=== PATIENT | female | born 1955 | race Caucasian/White ===

== ENCOUNTER 2020-12-29 14:31 | Emergency (ER) | payer BC, MEDICARE ==
[~2020-12-29] VITALS: Ht 167.6 cm; Wt 68.0 kg
--- NOTE | 2020-12-29 14:40 | NUR ---
RONNIE STEWART "From a Motel Friend called - was smoking Heroin - Stopped Breathing. Gave Narcan en route. [id number]" Patient a/ox4, breathing even and unlabored, no sob noted, ambulatory withs teady gait. No complaints.
[2020-12-29] MEDS ORDERED: ONDANSETRON 4 MG TAB.RAPDIS ONE (14:52)
[2020-12-29] MEDS ORDERED: ONDANSETRON HCL 4 MG/5 ML SOLUTION PO ONE (15:00)
[2020-12-29] MEDS ORDERED: NALO4SPR NS (15:47)
--- NOTE | 2020-12-29 15:57 | NUR ---
Patient given written and verbal discharge instructions. Patient verbalizes understanding of instructions. Patient is ambulatory with steady gait. Refuses offer of care home placement. Patient given list of available shelters in surrounding area.
[2020-12-29 15:58] VITALS: BP 143/79
== END 2020-12-29 15:59 | disposition home or self-care (01) ==
LOC: ER 14:36
DX: T40.1X1A Poisoning by heroin, accidental (unintentional), initial encounter (principal); Y92.89 Other specified places as the place of occurrence of the external cause
CPT/HCPCS: 99283; Q0162

== ENCOUNTER 2023-04-20 21:54 | Emergency (ER) | payer MEDICARE ==
[~2023-04-20] VITALS: Ht 172.7 cm; Wt 63.5 kg
[~2023-04-20 21:54] MED LIST: NALO4SPR NS
[2023-04-20 22:46] VITALS: BP 135/79; TEMP 98; O2SAT 98
[2023-04-20 22:52] LABS: APPEARANCE,URINE CLEAR (CLEAR); BILIRUBIN,URINE 2+ (NEGATIVE); BLOOD, URINE NEGATIVE Ery/uL (NEGATIVE); COLOR,URINE DARK YELLOW (YELLOW); KETONES,URINE TRACE mg/dL (NEGATIVE); LEUKOCYTE ESTERASE ,URINE TRACE (NEGATIVE); NITRITE, URINE NEGATIVE (NEGATIVE); PH,URINE 5.5 (5.0-8.0); PROTEIN,URINE 1+ mg/dl (NEGATIVE); UGLUCOSE NEGATIVE (NEGATIVE)
[2023-04-20 22:53] LABS: ADD URINE CULTURE NO; BACTERIA,URINE Rare /HPF (None Seen); RBC,URINE 0-2 /HPF (0-2); SQUAMOUS EPITHELIAL CELL,UR Few /HPF (None Seen)
[2023-04-20 23:01] LABS: BARBITURATE, URINE NEGATIVE (NEGATIVE); BENZODIAZEPINE, URINE NEGATIVE (NEGATIVE); CANNABINOID, URINE NEGATIVE (NEGATIVE); COCCAINE, URINE NEGATIVE (NEGATIVE); PHENCYCLIDINE SCREEN,URINE NEGATIVE (NEGATIVE)
[2023-04-20 23:03] LABS: AMPHETAMINE, URINE POSITIVE (NEGATIVE); OPIATE, URINE POSITIVE (NEGATIVE)
== END 2023-04-20 22:30 | disposition home or self-care (01) ==
LOC: ER 21:56
DX: S80.211A Abrasion, right knee, initial encounter (principal); I10 Essential (primary) hypertension; X58.XXXA Exposure to other specified factors, initial encounter; Y93.89 Activity, other specified; Y92.89 Other specified places as the place of occurrence of the external cause; Y99.8 Other external cause status
CPT/HCPCS: 81001

== ENCOUNTER 2025-07-19 12:46 | Inpatient (IN) | payer MEDICARE ==
[~2025-07-19] VITALS: Ht 172.7 cm; Wt 55.8 kg
[2025-07-19 13:04] VITALS: O2SAT 92
--- NOTE | 2025-07-19 13:09 | NUR ---
code sepsis activated
--- NOTE | 2025-07-19 13:30 | NUR ---
MRSA SWAB COLLECTED AND SENT TO LAB
--- NOTE | 2025-07-19 13:32 | NUR ---
urine sent to lab
--- NOTE | 2025-07-19 13:32 | NUR ---
clive sent to lab
[2025-07-19] MEDS ORDERED: ACETAMINOPHEN 650 MG/SUPP.RECT RC ONE (13:33)
[2025-07-19] MEDS: IV NS 0.9% 1,000 ML BAG IV ONE (13:36)
[2025-07-19] MEDS: CEFEPIME 1 GM in IV D5W 50 ML IV ONE (13:37)
[2025-07-19] MEDS: ACETAMINOPHEN 650 MG/SUPP.RECT RC ONE (13:37)
[2025-07-19 13:43] LABS: PLATELET COUNT (AUTO) 266 K/uL (150-450); RED BLOOD CELL COUNT(AUTO) 4.16 MIL/uL (4.0-5.2); RED CELL DISTRIBUTION WIDTH 14.7 % (11.5-15.0); WHITE BLOOD COUNT (AUTO) 16.9 K/uL (4.3-11.0)
[2025-07-19 13:49] LABS: APPEARANCE,URINE CLEAR (CLEAR); BLOOD, URINE 2+ Ery/uL (NEGATIVE); LEUKOCYTE ESTERASE ,URINE NEGATIVE (NEGATIVE); NITRITE, URINE NEGATIVE (NEGATIVE); UGLUCOSE NEGATIVE (NEGATIVE)
[2025-07-19 13:51] LABS: CALCIUM, SERUM 9.3 mg/dL (8.5-10.1); CREATININE 1.4 mg/dL (0.6-1.3); SODIUM SERUM 139 mmol/L (136-145); UREA NITROGEN, BLOOD 41 mg/dL (7-18)
[2025-07-19] MEDS: VANCOMYCIN 1 GM in IV D5W 250 ML IV ONE (13:51)
[2025-07-19 13:52] LABS: SERUM AMMONIA 18 umol/L (11-32)
[2025-07-19 13:59] LABS: LACTIC ACID 2.0 mmol/L (0.4-2.0)
[2025-07-19 14:02] LABS: ADD URINE CULTURE NO; SQUAMOUS EPITHELIAL CELL,UR 0-2 /HPF (None Seen)
[2025-07-19 14:03] LABS: HYALINE CASTS, URINE Rare /LPF (None Seen)
--- NOTE | 2025-07-19 14:04 | NUR ---
MED RECON NOTES Patient is a poor historian and not able to say what medications she currently takes.
[2025-07-19 14:05] LABS: BARBITURATE, URINE NEGATIVE (NEGATIVE); BENZODIAZEPINE, URINE NEGATIVE (NEGATIVE); CANNABINOID, URINE NEGATIVE (NEGATIVE); COCCAINE, URINE NEGATIVE (NEGATIVE); OPIATE, URINE NEGATIVE (NEGATIVE)
[2025-07-19 14:05] LABS: ASPARTATE AMINOTRANSFERASE 39 U/L (15-37); TOTAL PROTEIN, SERUM 8.5 g/dL (6.4-8.2)
[2025-07-19 14:06] LABS: INR 0.99 (0.91-1.10)
[2025-07-19 14:07] LABS: AMPHETAMINE, URINE POSITIVE (NEGATIVE)
[2025-07-19 14:08] LABS: ALCOHOL, BLOOD < 3 mg/dL (0-10)
--- NOTE | 2025-07-19 14:20 | NUR ---
pt wheeled to radio via [facility] by [facility] in stable condition
[2025-07-19] MEDS ORDERED: LORAZEPAM INJ 2 MG/ML VIAL ONE (14:21)
--- NOTE | 2025-07-19 14:26 | NUR ---
BED REQUESTED FROM HOUSE SUPE
[2025-07-19] MEDS ORDERED: IOHEXOL-300 100 ML VIAL IV ONE (14:30)
[2025-07-19] MEDS ORDERED: IV NS 0.9% 250 ML IV ONE (14:30)
--- NOTE | 2025-07-19 14:53 | NUR ---
pt back from radio via [facility] in stable condition
[2025-07-19] MEDS: LORAZEPAM INJ 2 MG/ML VIAL IV ONE (14:56)
--- NOTE | 2025-07-19 15:03 | NUR ---
309-2 ER ADMITTING AWARE
--- NOTE | 2025-07-19 15:15 | NUR ---
report given to flaquito aguilar for jeri
[2025-07-19] MEDS: PERMETHRIN 5% CRM 60 GM TUBE TP ONE (15:30)
--- NOTE | 2025-07-19 15:35 | NUR ---
PT WAS REFERRED TO MD FOR +LICE, WAITING FOR ORDERS
[2025-07-19] MEDS ORDERED: ASPIRIN 325 MG TABLET PO ONE ×2 (16:00)
[2025-07-19] MEDS ORDERED: DOSING PER PHARMACY-CEFEPIME IVPB XX PRN ×2 (16:30→17:15)
[2025-07-19] MEDS ORDERED: hydrALAZINE HCL IV 20 MG VIAL IV PRN (16:30)
[2025-07-19] MEDS ORDERED: ONDANSETRON HCL/PF 4 MG/2 ML VIAL IVP PRN (16:30)
[2025-07-19] MEDS ORDERED: MORPHINE SULFATE INJ 2 MG/ML DISP.SYRIN IV PRN (16:30)
[2025-07-19] MEDS ORDERED: DOSING PER PHARMACY-VANCOMYCIN IV XX PRN ×2 (16:30→17:15)
--- NOTE | 2025-07-19 16:44 | NUR ---
PT MEDICATED, WASHED AND CLEANED ORDERED.
--- NOTE | 2025-07-19 16:45 | NUR ---
Attempted to scan patient (echo) in ER; exam deferred due to patient agitation.
--- NOTE | 2025-07-19 16:47 | NUR ---
COVID SWAB SENT TO LAB
--- NOTE | 2025-07-19 16:49 | NUR ---
INF SWAB SENT TO LAB
--- NOTE | 2025-07-19 16:51 | NUR ---
PT WHEELED TO FLOOR VIA GURNEY BY EMT, IN STABLE CONDITION
--- NOTE | 2025-07-19 17:30 | NUR ---
RN MS ADMISSION NOTE : RECEIVED PT IN BED SLEEP IN [facility] FROM ER, ACCOMPANIED WITH 1 ER STAFF. PT ON ROOM AIR, BREATHING EVEN AND UNLABORED. NO INDICATION OF ACUTE RESPIRATORY DISTRESS NOTED. NO INDICATION OF PAIN NOTED . PT IS ON CONTACT ISOLATION DUE TO LICE. HAIR TRIMMED WITH ELECTRICAL SHAVER. ER APPLIED ELIMITE ON HEAD AND HAIR SINCE PT BECAME AGITATED THEY WASHED OUT HAIR ACCORDING TO NURSE. PT HAS RASH ON BACK SINCE PT BECAME AGITATED AND MOVED UNABLE TO TAKE PICTURES . PT HAS MARTINEZ DUE TO DECOMPRESS BLADDER WITH 900 URINE OUTPUT. IV SITE IS ON RAC22 G RUNNING VANCO IN 100 ML/HR AND 0.9%NS. IV SITE IS PATENT AND FLUSH WELL. PT IS ON AGITATED AND UNCOOPERATIVE STAE. ALL FALL AND SAFETY PRECAUTION IN PLACE.
[2025-07-19] MEDS: IV NS 0.9% 1,000 ML IV SCH (17:49)
[2025-07-19] MEDS: VANCOMYCIN 500 MG in IV D5W 100ml IV ONE (18:24)
--- NOTE | 2025-07-19 20:00 | NUR ---
OPENING NOTES. RECEIVED PT IN BED ..AWAKE,ALERT AND ORIENTEDX1,CONFUSED..VSS,NO SOB,DENIES PAIN.IVF INFUSING,TRELL WELL.SKIN WARM,DRY W/ MULTIPLE SCABS AND RASHES..PLAN OF CARE ONGOING..BED ALARM ON..CALL LIGHT IN REACH..
[2025-07-19] MEDS: HEPARIN SODIUM, PORCINE 5000 UNITS/1 ML VIAL SQ SCH (21:21)
--- NOTE | 2025-07-19 22:10 | NUR ---
Second attempt for echo: scan not performed as patient remained agitated.
[2025-07-20] MEDS: CEFEPIME 2 GM in IV D5W 100 ML IV SCH (01:54)
--- NOTE | 2025-07-20 07:00 | NUR ---
CLOSING NOTES PT'S CARE ENDORSED TO AM NURSE.PT REMAINS STABLE..ALL NEEDS PROVIDED..ALL DUE MEDS GIVEN,TRELL WELL..
--- NOTE | 2025-07-20 07:04 | NUR ---
MS RN OPENING NOTES RECEIVED PATIENT IN BED, ASLEEP BUT AWAKENS TO VERBAL AND TACTILE STIMULI. A/O 1-TO NAME ONLY. NO SIGNS OF CARDIAC DISTRESS NOTED. ON ROOM AIR, TOLERATING WELL. NO SOB, BREATHING EVEN AND UNLABORED. WITH IV ACCESS ON RIGHT ANTECUBITAL #22G-INFUSING WELL WITH NORMAL SALINE AT 75CC/HOUR-INTACT AND PATENT. PATIENT IS UNDER CONTACT ISOLATION DUE TO LICE INFESTATION. MARTINEZ CATHETER IN PLACED DRAINING YELLOW CLEAR URINE VIA GRAVITY. NO FACIAL GRIMACING/DISCOMFORT NOTED AT THIS TIME. SAFETY MEASURES IN PLACED. BED IN LOW AND LOCKED POSITION. CALL LIGHT AND TABLE WITHIN EASY REACH. HOB ELEVATED. SIDE RAILS UP X4. WILL CONTINUE WITH PLAN OF CARE.
[2025-07-20 08:00] VITALS: BP 149/61; TEMP 97.5; O2SAT 97
--- NOTE | 2025-07-20 11:34 | NUR ---
Social Work Note: Social work consultation requested for homelessness. Patient is a 70 year old female who was found on the streets. Patient is unable to answer any questions at this time and has a disorganized thought process. support worker was unable to complete consultation. support worker notified case management of this update.
[2025-07-20] MEDS: IV NS 0.9% 1,000 ML IV PRN (15:03)
[2025-07-20 16:00] VITALS: BP 158/91; TEMP 97.9; O2SAT 98
--- NOTE | 2025-07-20 16:20 | NUR ---
RN NOTES APPLICATION TECHNICIAN REPORTED THAT PATIENT HAS BEEN REFUSING BLOOD DRAW. DEB WOOTEN AND THIS EXCEPTIONAL NEEDS TEACHER WENT TO BEDSIDE TO ASSIST; MULTIPLE ATTEMPTS AVOIDED PER PROTOCOL DUE TO PATIENT BEING HARDSTICK. WILL REATTEMPT LATER.
[2025-07-20] MEDS: VANCOMYCIN 1 GM in IV D5W 250ml IV SCH (18:00)
--- NOTE | 2025-07-20 18:37 | NUR ---
RN NOTES HELD SCHEDULED DOSE OF VANCOMYCIN IV DUE TO INDEPENDENT TRADER UNABLE TO DRAW BLOOD FOR VANCOMYCIN TROUGH LEVEL. MD GALAVIZ AND PHARMACY STAFF KAITLIN ABOUT HOLDING THE MEDICATION.
--- NOTE | 2025-07-20 18:42 | NUR ---
MS RN CLOSING NOTES PATIENT IN BED, ASLEEP BUT AWAKENS TO VERBAL AND TACTILE STIMULI. A/O 1-TO NAME ONLY. NO SIGNS OF CARDIAC DISTRESS NOTED. ON ROOM AIR, TOLERATED WELL. NO SOB, BREATHING EVEN AND UNLABORED. WITH IV ACCESS ON RIGHT ANTECUBITAL #22G-INFUSING WELL WITH NORMAL SALINE AT 75CC/HOUR-INTACT AND PATENT. CONTACT ISOLATION MAINTAINED DUE TO LICE INFESTATION. MARTINEZ CATHETER IN PLACED DRAINED 2000CC OF YELLOW CLEAR URINE VIA GRAVITY. NO FACIAL GRIMACING/DISCOMFORT NOTED AT THIS TIME. DUE MEDS GIVEN. NURSING CARE RENDERED. SAFETY MEASURES IMPLEMENTED. BED IN LOW AND LOCKED POSITION. CALL LIGHT AND TABLE WITHIN EASY REACH. HOB ELEVATED. SIDE RAILS UP X4. WILL ENDORSE TO DUMP GRADER NURSE FOR CONTINUITY OF CARE.
[2025-07-20 20:00] VITALS: BP_SYST 154; BP_SYST 166; BP_DIAS 93; BP_DIAS 94; BP_DIAS 95; TEMP 97.7; O2SAT 96; O2SAT 97
--- NOTE | 2025-07-20 20:58 | NUR ---
MS RN OPENING NOTES RECEIVED PATIENT SLEEPING IN BED. PATIENT A&OX1-2, EASILY AWOKEN FROM SLEEP VIA TACTILE STIMULATION AND NAME. PATIENT NON-VERBAL. PATIENT ABLE TO VERBALIZE NEEDS THROUGH HAND GESTURES, UNABLE TO FOLLOW COMMANDS, NEEDS FREQUENT EDUCATION. PATIENT ON ROOM AIR, BREATHING EVEN AND UNLABORED, NO S/S RESPIRATORY DISTRESS. PATIENT ON BEDREST AND VOIDING THROUGH MARTINEZ, TOLERATING WELL. PATIENT COMFORTABLE IN BED W/ NO C/O PAIN. PATIENT BED LOW, LOCKED, SIDE RAILS UPX3, AND CALL LIGHT WITHIN REACH. ONGOING PLAN OF CARE. Addendum: 07/20/25 at 2101 by ASHLEY COOPER RN Nic OPENING NOTES
--- NOTE | 2025-07-20 21:01 | NUR ---
MS RN NOTES PATIENT REFUSED LAB WORK DESPITE RN AND DEBLOCKER EDUCATION. CHARGE NURSE AWARE. PATIENT DUE FOR LAB WORK AGAIN @6AM AND VANCO TROUGH @ 1700 07/21. ONGOING PLAN OF CARE.
[2025-07-20 22:35] VITALS: BP 154/95
--- NOTE | 2025-07-20 23:10 | NUR ---
MS RN NOTES PT REFUSED DUE HEPARIN @2100. PATIENT KEPT PULLING UP COVERS AND IGNORED PRIMARY RN EDUCATION REGARDING NECESSITY OF MEDICATION. ONGOING PLAN OF CARE.
--- NOTE | 2025-07-21 07:30 | NUR ---
MS RN OPENING NOTES RECEIVED PATIENT SLEEPING IN BED. PATIENT A&OX1-2, NON-VERBAL AND NOTED TO BE NON-COMPLIANT TO MEDS. ON ROOM AIR, BREATHING EVEN AND UNLABORED, NO S/S SOB. PATIENT ON BEDREST AND VOIDING THROUGH MARTINEZ, TOLERATING WELL.DENIES PAIN OR DISCOMFORT AT THIS TIME. NO IV ACCESS. FALL SAFETY MEASURES MAINTAINED. PATIENT BED LOW, LOCKED, SIDE RAILS UPX3, AND CALL LIGHT WITHIN REACH. PLAN OF CARE ONGOING.
--- NOTE | 2025-07-21 07:34 | NUR ---
MS RN CLOSING NOTES LEFT PATIENT SLEEPING IN BED. PATIENT A&OX1-2, REMAINS EASILY AWOKEN FROM SLEEP VIA TOUCH STIMULATION AND NAME.PATIENT REMAINS NON-VERBAL AND NOTED TO BE NON-COMPLIANT TO MEDICATIONS/NURSING INTERVENTIONS DESPITE EDUCATION THROUGHOUT SHIFT. PATIENT REMAINS ABLE TO VERBALIZE NEEDS THROUGH HAND GESTURES. PATIENT REMAINS ON ROOM AIR, BREATHING EVEN AND UNLABORED, NO S/S SOB. PATIENT ON BEDREST AND VOIDING THROUGH MARTINEZ, TOLERATING WELL. PATIENT REMAINS COMFORTABLE IN BED W/ NO C/O PAIN. ALL PATIENT NEEDS ATTENDED AND ADDRESSED. PATIENT SAFETY MEASURES MAINTAINED. PATIENT BED LOW, LOCKED, SIDE RAILS UPX3, AND CALL LIGHT WITHIN REACH. ENDORSED TO DAY SHIFT RN FOR EDIS. Addendum: 07/21/25 at 0735 by ASHLEY COOPER RN CLOSING NOTES
--- NOTE | 2025-07-21 07:35 | NUR ---
MS RN CLOSING NOTES LEFT PATIENT SLEEPING IN BED. PATIENT A&OX1-2, REMAINS EASILY AWOKEN FROM SLEEP VIA TOUCH STIMULATION AND NAME. PATIENT REMAINS NON-VERBAL AND NOTED TO BE NON-COMPLIANT TO MEDICATIONS/NURSING INTERVENTIONS DESPITE EDUCATION THROUGHOUT SHIFT. PATIENT REMAINS ABLE TO VERBALIZE NEEDS THROUGH HAND GESTURES. PATIENT REMAINS ON ROOM AIR, BREATHING EVEN AND UNLABORED, NO S/S SOB. PATIENT ON BEDREST AND VOIDING THROUGH MARTINEZ, TOLERATING WELL. PATIENT REMAINS COMFORTABLE IN BED W/ NO C/O PAIN. ALL PATIENT NEEDS ATTENDED AND ADDRESSED. PATIENT SAFETY MEASURES MAINTAINED. PATIENT BED LOW, LOCKED, SIDE RAILS UPX3, AND CALL LIGHT WITHIN REACH. ENDORSED TO DAY SHIFT RN FOR EDIS. Addendum: 07/21/25 at 0737 by ASHLEY COOPER RN PT DISLODGED IV ACCESS, NO S/S OF BLEEDING, GAUZE APPLIED. PT REFUSES IV ACCESS, STARTED THRASHING AT RN DESPITE RN EDUCATION.
[2025-07-21 08:35] LABS: PLATELET COUNT (AUTO) 309 K/uL (150-450); RED BLOOD CELL COUNT(AUTO) 4.32 MIL/uL (4.0-5.2); RED CELL DISTRIBUTION WIDTH 14.9 % (11.5-15.0); WHITE BLOOD COUNT (AUTO) 7.6 K/uL (4.3-11.0)
[2025-07-21 09:07] LABS: ASPARTATE AMINOTRANSFERASE 37.0 U/L (15-37); CALCIUM, SERUM 9.1 mg/dL (8.5-10.1); CREATININE 1.1 mg/dL (0.6-1.3); PHOSPHORUS 3.6 mg/dL (2.5-4.9); SODIUM SERUM 139.0 mmol/L (136-145); TOTAL PROTEIN, SERUM 7.7 g/dL (6.4-8.2); UREA NITROGEN, BLOOD 22.0 mg/dL (7-18)
[2025-07-21 09:34] VITALS: BP 152/89; TEMP 98.2; O2SAT 98
[2025-07-21 10:05] LABS: CREATINE KINASE, TOTAL 110.0 U/L (26-192)
[2025-07-21 17:07] VITALS: BP 146/80; TEMP 98; O2SAT 96
[2025-07-21 17:08] LABS: CREATININE, URINE 169.7 MG/DL (30.0-125.0); URINE SODIUM, RANDOM 54.0 mmol/l (40-220); URINE TOTAL PROTEIN 156.7 mg/dL (0-11.9)
--- NOTE | 2025-07-21 18:33 | NUR ---
MS RN CLOSING NOTES PATIENT AWAKE IN BED, EATING PUDDING. PATIENT A&OX1-2, VERBALIZE NEEDS NOW, ON ROOM AIR, BREATHING EVEN AND UNLABORED, NO S/S SOB. D/C MARTINEZ TODAY. DENIES PAIN OR DISCOMFORT AT THIS TIME. IV ACCESS ON RIGHT HAND 20G RUNNING NS @75 ML/HR. ALL NEEDS ATTENDED, ALL MEDS GIVEN ORDERED. FALL SAFETY MEASURES MAINTAINED. PATIENT BED LOW, LOCKED, SIDE RAILS UPX3, AND CALL LIGHT WITHIN REACH. PLAN OF CARE ONGOING. ENDORSED TO NEXT SHIFT.
--- NOTE | 2025-07-21 19:30 | NUR ---
RN NOTES ON CONTACT ISOLATION FOR LICE , WILL CONTINUE TO MONITOR
--- NOTE | 2025-07-21 19:30 | NUR ---
RN OPENING NOTES RECEIVED PATIENT AWAKE IN BED, SCREAMING FOR PUDDING , PLENTY OF PUDDING CUPS WAS THROWN ON THE FLOOR . PATIENT A&OX1-2, VERBALIZE NEEDS , ON ROOM AIR, BREATHING EVEN AND UNLABORED, NO S/S SOB. DENIES PAIN OR DISCOMFORT AT THIS TIME. IV ACCESS ON RIGHT HAND 20G RUNNING NS @75 ML/HR. ALL NEEDS ATTENDED. FALL SAFETY MEASURES MAINTAINED. PATIENT BED LOW, LOCKED, SIDE RAILS UPX3, AND CALL LIGHT WITHIN REACH. PLAN OF CARE ONGOING.
[2025-07-21 21:22] VITALS: BP 144/74; TEMP 98; O2SAT 92
--- NOTE | 2025-07-22 01:20 | NUR ---
RN NOTES PATIENT AWAKE WALKING AROUND THE HER ROOM NAKED, REFUSED TO WEAR HOSPITAL GOWN AND UNDIES , AND TRYING TO GET OUT FROM THE ROOM MULTIPLE TIMES. PATIENT DIGGING ON TRASH AND LOOKING FOR FOOD (WE GAVE HER ALREADY SNACKS ESPECIALLY MARY PUDDING BUT STILL SHE WANTS TONS OF IT) .REDIRECT THE PATIENT BUT SHE WONT LISTEN .
--- NOTE | 2025-07-22 01:25 | NUR ---
RN NOTES UNABLE TO CONTINUE THE IVF D/T PATIENT WALKING AROUND HER ROOM AND BITING THE IV TUBE IF U TRIED TO PUT IT ON . EXPLAINED TO THE PATIENT SHE HAVE ANTIBIOTIC IV AND NEEDS TO STAY STILL OR LAY DOWN ON HER BED , BUT PATIENT WONT LISTEN AND REFUSED TO ANY INSTRUCTIONS . EXPLAINED THE RISK AND BENEFITS OF TAKING HER ANTIBIOTIC BUT PATIENT WONT STAY STILL.
--- NOTE | 2025-07-22 01:38 | NUR ---
RN NOTES PATIENT WAS AWAKE NAKED , CURSING NURSES , SCREAMING , TRYING TO GET OUT FROM THE ROOM .
--- NOTE | 2025-07-22 01:57 | NUR ---
RN NOTES PATIENT AWAKE ON BED , REFUSED TO HOOK HER IVF NS TO ADMINISTER HER ANTIBIOTIC, PATIENT REFUSED .
--- NOTE | 2025-07-22 06:00 | NUR ---
RN NOTES PATIENT ON BED ASLEEP SLEEPING ON HER BM, WOKE UP THE PATIENT AND ENCOURAGED AND ACCOMPANIED PATIENT TO TOILET TO CLEAN BUT STRONGLY REFUSED , CHANGED HER LINENS FROM TOP TO BOTTOM AND PATIENT WAS STANDING BESIDE ME AND POOPING , ENCOURAGED TO GO TOILET BUT REFUSED AND IMMEDIATELY JUMP TO HER BED WITH STOOLS ON HER ANAL , TRIED TO CLEAN AFTER 1 WIPE SHE REFUSED TO FINISH , SHE SAID IM COLD AND SLEEPY.
--- NOTE | 2025-07-22 07:03 | NUR ---
RN CLOSING NOTES PATIENT ON BED ASLEEP .ON ROOM AIR , NO GRIMACING OR ANY SIGNS OF DISCOMFORT . WITH IV ACCESS @ RT HAND INTACT WITH SLEEVES . NEEDS ATTENDED , KEPT WARM AND COMFORTABLE ON BED , REMAINS ON CONTACT ISOLATION FOR LICE . ENDORSED TO NEXT SHIFT
[2025-07-22 07:56] LABS: CALCIUM, SERUM 9.2 mg/dL (8.5-10.1); CREATININE 1.0 mg/dL (0.6-1.3); SODIUM SERUM 138.0 mmol/L (136-145); UREA NITROGEN, BLOOD 35.0 mg/dL (7-18)
--- NOTE | 2025-07-22 08:12 | NUR ---
RN OPENING NOTES: RECEIVED PATIENT AWAKE IN BED, SCREAMING FOR SNACKS. PATIENT A&OX1-2, VERBALIZE NEEDS, ON ROOM AIR, BREATHING EVEN AND UNLABORED, NO S/S SOB. DENIES PAIN OR DISCOMFORT AT THIS TIME. IV ACCESS ON RIGHT HAND 20G. ALL NEEDS ATTENDED. FALL SAFETY MEASURES MAINTAINED. PATIENT BED LOW, LOCKED, SIDE RAILS UPX3, AND CALL LIGHT WITHIN REACH. PLAN OF CARE ONGOING.
[2025-07-22 09:45] VITALS: BP 115/57; TEMP 98.4; O2SAT 98
[2025-07-22] MEDS: ACETAMINOPHEN 325 MG TABLET PO PRN (09:54)
--- NOTE | 2025-07-22 13:40 | NUR ---
RN NOTES: PT DISCHARGED PER PROTOCOL.
--- NOTE | 2025-07-22 13:52 | NUR ---
RN MS NOTES PT AWAKE, ALERT AND ORIENTED, DENIES PAIN, NOT IN DISTRESS, AMBULATES INSIDE HER ROOM, SEEN BY PT, WITH HIGH FUNCTIONAL LEVEL PER PT, DISCHARGE ORDER GIVEN BY DR. BRAUN, PER RETAIL PERSONAL BANKER PT REFUSED RESOURCES AND WILL GO BACK TO HER BOYFRIEND'S TENT, DISCHARGE AND MEDICATION INSTRUCTIONS PROVIDED TO PT, VERBALIZED UNDERSTANDING, PT REFUSED SKIN PHOTOS ON DISCHARGE, BELONGINGS ACCOUNTED FOR, BUS CARD PROVIDED, ACCOMPANIED PT TO HOSPITAL LOBBY, LEFT IN STABLE CONDITION.
[2025-07-23 01:09] LABS: PTH, INTACT 37 pg/mL (15-65)
[2025-07-25 13:10] LABS: *SPE A/G RATIO 0.6 (0.7-1.7); *SPE ALBUMIN 2.7 g/dL (2.9-4.4); *SPE ALPHA-1-GLOBULIN 0.4 g/dL (0.0-0.4); *SPE ALPHA-2-GLOBULIN 1.0 g/dL (0.4-1.0); *SPE BETA GLOBULIN 0.9 g/dL (0.7-1.3); *SPE GLOBULIN, TOTAL 4.3 g/dL (2.2-3.9); *SPE M-SPIKE Not Observed g/dL (Not Observed); *SPE PROTEIN TOTAL 7.0 g/dL (6.0-8.5); *SPEGAMMA GLOBULIN 2.0 g/dL (0.4-1.8)
== END 2025-07-22 13:30 | disposition home or self-care (01) | DRG 91 ==
LOC: ER 12:48 → MED 17:07
PROVIDERS: ADMIT Internal Medicine; ATTEND Internal Medicine
DX: G92.9 Unspecified toxic encephalopathy (principal); I21.A1 Myocardial infarction type 2; Z59.01 Sheltered homelessness; B19.20 Unspecified viral hepatitis C without hepatic coma; D72.829 Elevated white blood cell count, unspecified; B85.2 Pediculosis, unspecified; F19.10 Other psychoactive substance abuse, uncomplicated; I10 Essential (primary) hypertension; Z20.822 Contact with and (suspected) exposure to COVID-19; K21.9 Gastro-esophageal reflux disease without esophagitis; Z91.199 Patient's noncompliance with other medical treatment and regimen due to unspecified reason; M89.8X9 Other specified disorders of bone, unspecified site; R74.8 Abnormal levels of other serum enzymes
CPT/HCPCS: 36415; 70450-TC; 71045-TC; 80048-TC; 80053-TC; 80076-TC; 81001; 82140-TC; 82550-TC; 82553; 82570-TC; 82962-TC; 83605-TC; 83735-TC; 83970; 84100-TC; 84155; 84165; 84300-TC; 84443-TC; 84484-TC; 85025-TC; 85730-TC; 87040-TC; 87081-TC; 87086-TC; 97112-TC; 97116-TC; 97530-TC; A4223; G0378; G0480; J0692; J1644; J2060; J3373; J7030; J7050; J7060; Q9967